=== PATIENT | female | born 1960 | race Caucasian/White ===

== ENCOUNTER 2016-12-23 07:28 | Day surgery (SDC) | payer BC ==
[~2016-12-23 07:28] MED LIST: Lactated Ringers 1,000 ML IV SCH
[2016-12-23] MEDS ORDERED: VERSED 5 MG/5 ML IV ONE ×2 (07:29)
[2016-12-23] MEDS ORDERED: DEMEROL 50 MG IV ONE (07:29)
[2016-12-23] MEDS ORDERED: Lactated Ringers 2,000 ML IV ONE (12:30)
[2016-12-23 13:32] VITALS: BP 113/77; PULSE 89; O2SAT 99
--- NOTE | 2016-12-23 13:54 | OP ---
SURGERY DATE/TIME: 12/23/2016 1000 PREOPERATIVE DIAGNOSIS: Anemia possibly GI. POSTOPERATIVE DIAGNOSES: 1) The patient has a fairly significant chronic gastritis and two help desk representative biopsies were obtained. 2) The patient has a very long redundant colon. She states it sometimes takes up to two weeks having a bowel movement and this is consistent with her exam. I was having a distal view of the cecum but not a perfect view of the cecum so it was slightly limited and within these limits it was a normal exam. She was sent for barium enema examination to look at her cecum. PROCEDURES: 1) Colonoscopy with slight limitation to the cecum. 2) EGD with cold biopsy x2. SURGEON: Chris Henderson M.D. ANESTHESIA: IVS. DESCRIPTION OF PROCEDURE: The scope was placed. Esophagus normal down to gastroesophageal junction. Small rim of esophagitis grade I. There was significant chronic gastritis and two help desk representative biopsies obtained. Pylorus satisfactory. Duodenal bulb satisfactory. The second portion satisfactory. The scope was withdrawn. No distal lesions noted. Anal digital examination satisfactory. The scope advanced. As noted with repositioning, total withdrawal of the scope and total replacement of scope it was a very long redundant colon with two areas of pretty substantial angulation. It was unclear but the base of the cecum was not well visualized. She was subsequently sent for barium enema examination.
--- NOTE | 2016-12-23 16:59 | XRAY ---
Exam: Air contrast barium enema from 12/23/2016. Total fluoroscopy time: 5.32 minutes. Comparison: CT of the abdomen with IV contrast from 10/27/2016. Indication: Incomplete colonoscopy. Findings: The preliminary automatic dry starch operator film of the abdomen reveals a mild rotary dextroscoliosis centered near the thoracolumbar junction. Surgical clips consistent with prior cholecystectomy are seen. I am also giving a history of prior hysterectomy. Abundant bowel gas is seen within the right hemiabdomen, probably due to insufflated air from the attempted colonoscopy. No hepatosplenomegaly is seen. The entire colon was prepared using double contrast technique. The sigmoid colon is long and redundant in its course. Some intermittent spasm is seen in some of the overhead films. The splenic flexure is also mildly redundant. The transverse colon dips down into the mid pelvis. On one of the spot images I note a small subcentimeter defect which could represent a small sessile polyp or adherent stool. I believe I can see this on a right lateral decubitus image as well. No other evidence of obstruction,: contour changes, or intraluminal polypoid mass is seen. The cecum distended well with reflux of a minimal amount of barium into the distal aspect of the terminal ileum. The appendix did not opacify. Impression: 1. The colon course is long and redundant, particularly within the sigmoid colon, but also to a lesser extent, within the splenic flexure. The mid transverse colon dips down into the mid pelvis. 2. There is a small subcentimeter etched defect within the distal sigmoid colon on one spot image and one of the 2 right lateral decubitus images. This could represent a small sessile polyp or adherent stool. 3. I see no colon obstruction, persistent stenotic lesions, or other intraluminal colon polyps. I did see some intermittent spasm within the colon on the overhead radiographs. 4. Mild rotary dextroscoliosis centered at the thoracolumbar junction.
== END 2016-12-23 15:20 | disposition home or self-care (01) ==
LOC: SDC 07:28
PROVIDERS: ATTEND Surgery
PROC: 0DJD8ZZ Inspection of Lower Intestinal Tract, Via Natural or Artificial Opening Endoscopic (ICD-10-PCS; principal; 2016-12-23)
PROC: 0DB48ZX Excision of Esophagogastric Junction, Via Natural or Artificial Opening Endoscopic, Diagnostic (ICD-10-PCS; 2016-12-23)
DX: K29.50 Unspecified chronic gastritis without bleeding (principal); Q43.8 Other specified congenital malformations of intestine
CPT/HCPCS: 36415; 74280; J2175; J2250

== ENCOUNTER 2023-01-08 16:11 | Emergency (ER) | payer MEDICARE, BC ==
[2023-01-08 16:33] VITALS: TEMP 98.1
[2023-01-08] MEDS ORDERED: Sodium Chloride 0.9% 1000 ML 1,000 ML IV STA (16:42)
[2023-01-08] MEDS ORDERED: Sodium Chloride 0.9% 1000 ML 1,000 ML ONE ×2 (16:57→18:00)
[2023-01-08 17:20] LABS: Absolute Neutrophil Ct (ANC) 2.61 x10^3/uL (1.4-6.9); BASOPHIL % 0.2 % (0.0-0.4); Basophil (Absolute #) 0.01 x10^3/uL (0-0.4); Eosinophil % 2.7 % (0.00-5.0); Eosinophil (Absolute #) 0.14 x10^3/uL (0-0.5); Hematocrit 41.3 % (35-47); Hemoglobin 13.5 g/dL (12.0-16.0); IMMATURE GRAN # 0.02 x10^3u/L (0.00-0.03); IMMATURE GRAN % 0.4 % (0.00-0.4); Lymphocyte (Absolute #) 1.54 x10^3/uL (1.0-4.6); Lymphocytes % 29.6 % (24.0-44.0); Mean Cell Volume 90.4 fL (78-100); Mean Corpuscular Hemoglobin 29.5 pg (26-32); Mean Corpuscular Hgb Concent. 32.7 g/dL (32-36); Mean Platelet Volume 9.3 fL (7.5-11.0); Monocyte (Absolute #) 0.89 x10^3/uL (0.0-1.3); Monocytes % 17.1 % (0.0-12.0); Platelet Count 400 x10^3/uL (150-450); Red Blood Count 4.57 x10^6/uL (4.1-5.4); Red Cell Distribution Width 14.1 % (11.5-14.0); White Blood Count 5.2 x10^3/uL (4.0-10.5)
[2023-01-08 17:27] LABS: ALBUMIN 4.1 g/dL (3.5-5.0); ANION GAP 15.1 MEQ/L (5-15); BILIRUBIN,TOTAL 0.4 mg/dL (0.2-1.3); Calcium 9.2 mg/dL (8.4-10.2); Creatinine 1 0.62 mg/dL (0.52-1.04); EST GLOMERULAR FILTRATION RATE 99.4 ML/MIN; Total Protein 7.6 g/dL (6.3-8.2)
[2023-01-08 17:30] LABS: Potassium 2.9 mmol/L (3.5-5.1)
--- NOTE | 2023-01-08 17:34 | ERPHSYRPT ---
- History of Present Illness Time Seen by Provider: 01/08/23 16:20 Historian: patient Exam Limitations: no limitations Patient Subjective Stated Complaint: Pt states that she began having uncontrollable diarrhea on Tuesday and it continues through today Triage Nursing Assessment: Pt brought self to the ER, hypertensive, denies pain, tried eating mashed potatoes and cream of wheat and it stayed down until later today and the diarrhea started again, pt has been incontinent of bowel, denies any antibiotic use or being around anyone sick, pulses normal, skin n/w/d and ro, doesn't appear to be in any distress Physician History: 62-year-old female presented in the ER with chief complaint of intractable diarrhea for the last 4 days. Patient reports multiple episodes of diarrhea where she has to go every 15 to 30 minutes. Minimal abdominal discomfort, had nausea yesterday with 2 episodes of vomiting. Not nauseated now. Subjective feeling of fever and chills. Denies any history of C. difficile, recent antib iotic use etc. Denies any known sick contact. Patient reports feeling weak fatigued tired and dehydrated. Allergies/Adverse Reactions: gluten Allergy (Verified 01/08/23 16:34) Home Medications: Dorzolamide/Timolol/Pf [Cosopt Pf Eye Drops] 1 each OP BID 12/17/16 [History] Latanoprost [Xalatan] 0.005 ml OP DAILY 12/17/16 [History] Timolol Maleate 0.5% Eye [Timoptic 0.5% 5 ml Ophthalmic] 5 ml OP DAILY 12/17/16 [History] Fluticasone/Umeclidin/Vilanter [Trelegy Ellipta 200-62.5-25] 1 puff PO UD 01/08/23 [History] Hx Tetanus, Diphtheria Vaccination/Date Given: Yes Hx Influenza Vaccination/Date Given: No Hx Pneumococcal Vaccination/Date Given: No Travel Risk - International Travel Have you traveled outside of the country in past 3 weeks: No - Coronavirus Screening Are you exhibiting any of the following symptoms?: No Close contact with a COVID-19 positive Pt in past 14-21 Days: No - Vaccine Status Have you recieved a Covid-19 vaccination: Yes Cond[employer] Manager: Moderna - Vaccination Dates Date of 2cond Vaccination (if applicable): 2020 - Review of Systems Constitutional: Fatigue, Weakness Eyes: No Symptoms Ears, Nose, & Throat: No Symptoms Respiratory: No Symptoms Cardiac: No Symptoms Abdominal/Gastrointestinal: Abdominal Pain, Nausea, Vomiting, Diarrhea Genitourinary Symptoms: No Symptoms Musculoskeletal: No Symptoms Skin: No Symptoms Neurological: No Symptoms Endocrine: No Symptoms Hematologic/Lymphatic: No Symptoms - Past Medical History Pertinent Past Medical History: Yes Neurological History: Other ENT History: No Pertinent History Cardiac History: No Pertinent History Respiratory History: No Pertinent History Endocrine Medical History: No Pertinent History Musculoskeletal History: Fibromyalgia GI Medical History: Polyps, Other History: No Pertinent History Psycho-Social History: No Pertinent History Female Reproductive Disorders: No Pertinent History Other Medical History: NEUROGENIC COUGH, RADIATION IN THE MEDIAL L ANKLE FOR BASAL CELL SKIN CANCER 2 YEARS AGO AND PT HAS BEEN CLEARED OF ANY CANCER CELLS. - Past Surgical History Past Surgical History: Yes Neuro Surgical History: No Pertinent History Cardiac: No Pertinent History Respiratory: No Pertinent History Gastrointestinal: Cholecystectomy, Other Genitourinary: No Pertinent History Musculoskeletal: No Pertinent History Female Surgical History: Hysterectomy Other Surgical History: COLONOSCOPIES EVERY THREE YEARS - Social History Smoking Status: Never smoker Exposure to second hand smoke: No Drug Use: none Patient Lives Alone: No - Nursing Vital Signs Nursing Vital Signs: Initial Vital Signs Temperature 98.1 F 01/08/23 16:23 Pulse Rate 63 01/08/23 16:23 Blood Pressure 140/90 01/08/23 16:23 O2 Sat by Pulse Oximetry 98 01/08/23 16:23 Pain Scale Pain Intensity 0 - Physical Exam General Appearance: no apparent distress, alert Eye Exam: PERRL/EOMI Ears, Nose, Throat Exam: normal ENT inspection Neck Exam: normal inspection, supple, full range of motion Respiratory Exam: normal breath sounds, lungs clear Cardiovascular Exam: regular rate/rhythm, normal heart sounds Gastrointestinal/Abdomen Exam: soft, normal bowel sounds, No tenderness Extremity Exam: normal inspection, normal range of motion Neurologic Exam: alert, oriented x 3, cooperative Skin Exam: normal color SpO2 Interpretation: normal SpO2: 98 O2 Delivery: Room Air Ordered Tests: Active Orders 24 hr Category Date Time Status IV Insertion STAT Care 01/08/23 16:42 Active Telemetry q4h Care 01/08/23 17:45 Active ABDOMEN AND PELVIS W/0 CONTRAS [CT] Stat Exams 01/08/23 16:42 Completed CBC W DIFF Stat Lab 01/08/23 17:00 Completed CMP Stat Lab 01/08/23 17:00 Completed LIPASE Stat Lab 01/08/23 17:00 Completed MAG [MAGNESIUM] Stat Lab 01/08/23 17:00 Completed UA W/RFX UR CULTURE Stat Lab 01/08/23 19:40 Completed Medication Summary Generic Name Dose Route Start Last Admin Trade Name Kyq PRN Reason Stop Dose Admin Potassium Chloride 20 meq in 100 mls @ 50 mls/hr 01/08/23 17:45 01/08/23 20:07 Potassium Chloride 20 Meq In Water 100ml IV 01/08/23 21:44 50 mls/hr Q2H IRINA Administration Sodium Chloride 1,000 mls @ 100 mls/hr 01/08/23 18:00 01/08/23 18:04 Sodium Chloride 0.9% 1000 Ml IV 02/07/23 17:59 100 mls/hr .Q10H IRINA Administration Discontinued Medications Generic Name Dose Route Start Last Admin Trade Name Daly PRN Reason Stop Dose Admin Sodium Chloride 1,000 mls @ 999 mls/hr 01/08/23 16:42 01/08/23 18:26 Sodium Chloride 0.9% 1000 Ml IV 01/08/23 17:42 Infused .Q1H1M STA Infusion Sodium Chloride Confirm 01/08/23 16:57 Sodium Chloride 0.9% 1000 Ml Administered 01/08/23 16:58 Dose 1,000 mls @ ud .ROUTE .STK-MED ONE Magnesium Sulfate/Dextrose 100 mls @ 200 mls/hr 01/08/23 17:44 01/08/23 18:04 Magnesium 1 Gm / 100 Ml D5w IV 01/08/23 18:13 200 mls/hr STAT ONE Administration Magnesium Sulfate/Dextrose Confirm 01/08/23 18:00 Magnesium 1 Gm / 100 Ml D5w Administered 01/08/23 18:01 Dose 100 mls @ ud IV .STK-MED ONE Potassium Chloride 40 meq 01/08/23 18:02 01/08/23 18:03 Potassium Chloride Tab 10 Meq Tab PO 01/08/23 18:03 40 meq STAT ONE Administration Potassium Chloride Confirm 01/08/23 18:03 Potassium Chloride Tab 10 Meq Tab Administered 01/08/23 18:04 Dose 40 meq PO .STK-MED ONE Lab/Rad Data: Laboratory Result Diagrams 01/08/23 17:00 01/08/23 17:00 Laboratory Results 01/08/23 01/08/23 01/08/23 Range/Units 19:40 17:00 17:00 WBC (4.0-10.5) x10^3/uL RBC (4.1-5.4) x10^6/uL Hgb (12.0-16.0) g/dL Hct (35-47) % MCV (78-100) fL MCH (26-32) pg MCHC (32-36) g/dL RDW (11.5-14.0) % Plt Count (150-450) x10^3/uL MPV (7.5-11.0) fL Gran % (36.0-66.0) % Immature Gran % (Auto) (0.00-0.4) % Nucleat RBC Rel Count (0.00-0.1) % Eos # (Auto) (0-0.5) x10^3/uL Immature Gran # (Auto) (0.00-0.03) x10^3u/L Absolute Lymphs (auto) (1.0-4.6) x10^3/uL Absolute Monos (auto) (0.0-1.3) x10^3/uL Absolute Nucleated RBC (0.00-0.01) x10^3u/L Lymphocytes % (24.0-44.0) % Monocytes % (0.0-12.0) % Eosinophils % (0.00-5.0) % Basophils % (0.0-0.4) % Absolute Granulocytes (1.4-6.9) x10^3/uL Basophils # (0-0.4) x10^3/uL Sodium 136 L (137-145) mmol/L Potassium 2.9 L* (3.5-5.1) mmol/L Chloride 99 (98-107) mmol/L Carbon Dioxide 25 (22-30) mmol/L Anion Gap 15.1 H (5-15) MEQ/L BUN 16 (7-17) mg/dL Creatinine 0.62 (0.52-1.04) mg/dL Estimated GFR 99.4 ML/MIN Glucose 102 (74-106) mg/dL Calcium 9.2 (8.4-10.2) mg/dL Magnesium 1.9 (1.6-2.3) mg/dL Total Bilirubin 0.40 (0.2-1.3) mg/dL AST 29 (14-36) U/L ALT 27 (0-35) U/L Alkaline Phosphatase 108 (38-126) U/L Serum Total Protein 7.6 (6.3-8.2) g/dL Albumin 4.1 (3.5-5.0) g/dL Lipase 63 (23-300) U/L Urine Color Yellow (Yellow) Urine Appearance Clear (Clear) Urine pH 6.0 (4.6-8.0) Ur Specific [place] <=1.005 (1.005-1.030) Urine Protein Negative (Negative) Urine Glucose (UA) Negative (Negative) mg/dL Urine Ketones Trace A (Negative) Urine Blood Small A (Negative) Urine Nitrite Negative (Negative) Urine Bilirubin Negative (Negative) Urine Urobilinogen 0.2 (0.2) mg/dL Ur Leukocyte Esterase Negative (Negative) U Hyaline Cast (Auto) NONE SEEN (0-2) /LPF Urine Microscopic RBC 0-2 (0-5) /HPF Urine Microscopic WBC 0-2 (0-5) /HPF Ur Epithelial Cells None Seen (None Seen) /HPF Urine Bacteria None Seen (None Seen) /HPF Urine Culture Reflexed NO (NO) C. difficile Screen (NEGATIVE) C.difficile [id number] (NEGATIVE) 01/08/23 01/08/23 Range/Units 17:00 16:56 WBC 5.2 (4.0-10.5) x10^3/uL RBC 4.57 (4.1-5.4) x10^6/uL Hgb 13.5 (12.0-16.0) g/dL Hct 41.3 (35-47) % MCV 90.4 (78-100) fL MCH 29.5 (26-32) pg MCHC 32.7 (32-36) g/dL RDW 14.1 H (11.5-14.0) % Plt Count 400 (150-450) x10^3/uL MPV 9.3 (7.5-11.0) fL Gran % 50.0 (36.0-66.0) % Immature Gran % (Auto) 0.4 (0.00-0.4) % Nucleat RBC Rel Count 0.0 (0.00-0.1) % Eos # (Auto) 0.14 (0-0.5) x10^3/uL Immature Gran # (Auto) 0.02 (0.00-0.03) x10^3u/L Absolute Lymphs (auto) 1.54 (1.0-4.6) x10^3/uL Absolute Monos (auto) 0.89 (0.0-1.3) x10^3/uL Absolute Nucleated RBC 0.00 (0.00-0.01) x10^3u/L Lymphocytes % 29.6 (24.0-44.0) % Monocytes % 17.1 H (0.0-12.0) % Eosinophils % 2.7 (0.00-5.0) % Basophils % 0.2 (0.0-0.4) % Absolute Granulocytes 2.61 (1.4-6.9) x10^3/uL Basophils # 0.01 (0-0.4) x10^3/uL Sodium (137-145) mmol/L Potassium (3.5-5.1) mmol/L Chloride (98-107) mmol/L Carbon Dioxide (22-30) mmol/L Anion Gap (5-15) MEQ/L BUN (7-17) mg/dL Creatinine (0.52-1.04) mg/dL Estimated GFR ML/MIN Glucose (74-106) mg/dL Calcium (8.4-10.2) mg/dL Magnesium (1.6-2.3) mg/dL Total Bilirubin (0.2-1.3) mg/dL AST (14-36) U/L ALT (0-35) U/L Alkaline Phosphatase (38-126) U/L Serum Total Protein (6.3-8.2) g/dL Albumin (3.5-5.0) g/dL Lipase (23-300) U/L Urine Color (Yellow) Urine Appearance (Clear) Urine pH (4.6-8.0) Ur Specific [place] (1.005-1.030) Urine Protein (Negative) Urine Glucose (UA) (Negative) mg/dL Urine Ketones (Negative) Urine Blood (Negative) Urine Nitrite (Negative) Urine Bilirubin (Negative) Urine Urobilinogen (0.2) mg/dL Ur Leukocyte Esterase (Negative) U Hyaline Cast (Auto) (0-2) /LPF Urine Microscopic RBC (0-5) /HPF Urine Microscopic WBC (0-5) /HPF Ur Epithelial Cells (None Seen) /HPF Urine Bacteria (None Seen) /HPF Urine Culture Reflexed (NO) C. difficile Screen NEGATIVE (NEGATIVE) C.difficile 027-NAP1-B1 PRESUMPTIVE NEGATIVE (NEGATIVE) - Progress Progress: improved Progress Note: 01/08/23 21:34 62-year-old female presented in the ER with chief complaint of intractable diarrhea for the last 4 days. Patient reports multiple episodes of diarrhea where she has to go every 15 to 30 minutes. Minimal abdominal discomfort, had nausea yesterday with 2 episodes of vomiting. Not nauseated now. Subjective feeling of fever and chills. Denies any history of C. difficile, recent antibiotic use etc. Denies any known sick contact. Patient reports feeling weak fatigued tired and dehydrated. Abdominal exam is soft nontender with hyperactive bowel sounds. Given fluid bolus. Abdominal exam is soft nontender. Because of repeated/intractable diarrhea for the last few days I have done CT abdomen pelvis which is negative for any acute findings. Normal white count, fairly unremarkable chemistries except for pota ssium of 2.9 and given oral and IV replacement along with magnesium. C. difficile is negative. Patient is feeling much better. She does not have any further bowel movements. She is advised to take Tylenol, increase hydration, Zofran as needed and outpatient follow-up for reevaluation. We will give her few days worth of oral potassium replacement and recommended food containing high potassium the next few days and recheck potassium early next week. Discussed signs symptoms of worsening needing return to ER which she seems understanding. Stable for discharge. Counseled pt/family regarding: lab results, diagnosis, need for follow-up, rad results Medical Desision Making - Diagnostic Testing Diagnostic test were ordered, analyzed, and reviewed by me: Yes Radiological Interpretation: Reviewed by me, Teleradiologist Report - Risk of complications The pt has a mod risk of morbidity or mortality based on: Need for prescription drug management - Departure Departure Disposition: Home Clinical Impression: Gastroenteritis, Hypokalemia Condition: Stable Critical Care Time: No Referrals: EDDA DIAZ [Primary Care Provider] - Follow up/PCP as directed (Early next week for reevaluation and recheck of potassium) Instructions: Viral Gastroenteritis, Adult (DC) Additional Instructions: Drink plenty of fluids to keep yourself well-hydrated. Take Tylenol/Zofran as needed. Follow-up with primary care for reevaluation early next week and also recheck of your potassium. Return to ER for intractable diarrhea/abdominal pain/fever chills etc. Prescriptions: Potassium Chloride 10 meq PO BID 5 Days #10 cap Ondansetron ODT 4 MG [Zofran Odt 4 mg] 1 ea PO QIDPRN PRN #7 tablet PRN Reason: n/v
--- NOTE | 2023-01-08 17:41 | XRAY ---
CLINICAL HISTORY:DIARRHEA , COLITIS? COMPARISON:Compared to the previous CT chest study dated 07/02/2022. TECHNIQUE:A CT scan of the abdomen and pelvis was performed without IV contrast. Coronal and sagittal reconstructive images were also obtained. FINDINGS: Scanned lower chest cuts show ground glass and linear atelectatic bands are seen in the right middle lobe, likely sequelae of the previous inflammatory process. Abdomen: The liver is normal in size measuring 15.6 cm craniocaudally. A mildly lobulated, well-circumscribed hypodense nodule is seen in segment VII, measuring about 2.3 x 2.1 cm. The portal vein, intrahepatic biliary radicals, and the bile ducts are normal. The spleen, pancreas, and adrenal glands are unremarkable. The kidneys are normal in size and shape. No cysts, mass, calculi, or hydronephrosis. The gallbladder is not visualized with surgical clips within the gallbladder fossa. The ascending colon, the transverse colon, the descending colon, visualized small bowel loops are unremarkable. There is no evidence of significant enlargement of the mesenteric or retroperitoneal lymph nodes. Pelvis: The urinary bladder is underfilled. The uterus is surgically removed with no gross abnormality related to the surgical bed. The pelvic vasculature is unremarkable. No evidence of pelvic lymphadenopathy. Degenerative osseous changes are seen. There is rightward curvature of the lumbar spine. Wedging of T12 vertebral body likely representing osteoporotic fracture. The appendix is not visualized. IMPRESSION: Compared to the previous CT chest study dated 07/02/2022 No acute abdominal/pelvis abnormality noted. Hepatic nodule ( likely hepatic cyst) measuring 2.3 x 2.1 cm showing no interval change. Electronically Signed by: Karma White MD. (01/08/2023 16:40:40 AG SERVICE MANAGER)
[2023-01-08] MEDS ORDERED: Magnesium 1 Gm / 100 Ml D5W*** 100 ML IV ONE ×2 (17:44→18:00)
[2023-01-08] MEDS ORDERED: POTASSIUM CHLORIDE 20 mEq IN WATER 100ML 100 ML IV ONE ×2 (18:00→20:07)
[2023-01-08] MEDS ORDERED: Sodium Chloride 0.9% 1000 ML 1,000 ML IV SCH (18:00)
[2023-01-08] MEDS ORDERED: Klor Con PO ONE ×2 (18:02→18:03)
[2023-01-08 18:04] LABS: 027 TOX PROD PRESUMPTIVE NEGATIVE (NEGATIVE); TOXIGENIC C. DIFF ORG NEGATIVE (NEGATIVE)
[2023-01-08] MEDS: POTASSIUM CHLORIDE 20 mEq IN WATER 100ML 20 MEQ/100 ML BAG IV SCH ×2 (18:04→20:07)
[2023-01-08 19:41] VITALS: RESP 16
[2023-01-08 19:49] LABS: Appearance Clear (Clear); Bilirubin Negative (Negative); Blood Small (Negative); Glucose, Urine Negative (Negative); Ketones Trace (Negative); Leukocyte Esterase Negative (Negative); Nitrite Negative (Negative); Protein,Urine Dip Negative (Negative); Specific Gravity <=1.005 (1.005-1.030); Urobilinogen 0.2 mg/dL (0.2)
[2023-01-08 19:54] LABS: Bacteria None Seen /HPF (None Seen); Epithelial Cells None Seen /HPF (None Seen); Hyaline Casts NONE SEEN /LPF (0-2); RBC 0-2 /HPF (0-5); WBC 0-2 /HPF (0-5)
[2023-01-08 19:55] LABS: ADD URINE CULTURE? NO (NO)
[2023-01-08 21:26] VITALS: PULSE 80
[2023-01-08 22:27] VITALS: BP 113/70; O2SAT 98
== END 2023-01-08 22:31 | disposition home or self-care (01) ==
LOC: ED 16:11
DX: K52.9 Noninfective gastroenteritis and colitis, unspecified (principal); E87.6 Hypokalemia; R11.2 Nausea with vomiting, unspecified; R53.83 Other fatigue; Z79.899 Other long term (current) drug therapy
CPT/HCPCS: 36000; 36415; 74176; 80053; 81001; 83690; 83735; 85025; 87493; 96360; 96361; 96365; 96367; 99284; J3475; J3480; A9270-GY

== ENCOUNTER 2023-01-09 20:05 | Emergency (ER) | payer MEDICARE, BC ==
[2023-01-09] MEDS ORDERED: Sodium Chloride 0.9% 1000 ML 1,000 ML IV STA (20:38)
[2023-01-09 20:45] VITALS: RESP 16; TEMP 97.4
--- NOTE | 2023-01-09 20:46 | ERPHSYRPT ---
- History of Present Illness Time Seen by Provider: 01/09/23 20:31 Historian: patient Exam Limitations: no limitations Physician History: Pt states she has had diarrhea without blood for the past 4 days, nausea & vomiting x2 without blood 2 days ago only, generalized weakness for the past 2 days, palpitations yesterday only and a sore throat today. Allergies/Adverse Reactions: gluten Allergy (Verified 01/08/23 16:34) Home Medications: Dorzolamide/Timolol/Pf [Cosopt Pf Eye Drops] 1 each OP BID 12/17/16 [History] Latanoprost [Xalatan] 0.005 ml OP DAILY 12/17/16 [History] Timolol Maleate 0.5% Eye [Timoptic 0.5% 5 ml Ophthalmic] 5 ml OP DAILY 12/17/16 [History] Fluticasone/Umeclidin/Vilanter [Trelegy Ellipta 200-62.5-25] 1 puff PO UD 01/08/23 [History] Hx Tetanus, Diphtheria Vaccination/Date Given: Yes Hx Influenza Vaccination/Date Given: No Hx Pneumococcal Vaccination/Date Given: No Travel Risk - Vaccine Status Have you recieved a Covid-19 vaccination: Yes 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 - Vaccination Dates Date of 2cond Vaccination (if applicable): 2020 - Review of Systems Constitutional: No Fever Ears, Nose, & Throat: Throat Pain Respiratory: No Dyspnea Cardiac: Palpitations Abdominal/Gastrointestinal: Nausea, Vomiting, Diarrhea, No Abdominal Pain Genitourinary Symptoms: No Dysuria Skin: No Rash Neurological: No Headache - Past Medical History Pertinent Past Medical History: Yes Neurological History: Other ENT History: No Pertinent History Cardiac History: No Pertinent History Respiratory History: No Pertinent History Endocrine Medical History: No Pertinent History Musculoskeletal History: Fibromyalgia GI Medical History: Polyps, Other History: No Pertinent History Psycho-Social History: No Pertinent History Female Reproductive Disorders: No Pertinent History Other Medical History: NEUROGENIC COUGH, RADIATION IN THE MEDIAL L ANKLE FOR BASAL CELL SKIN CANCER 2 YEARS AGO AND PT HAS BEEN CLEARED OF ANY CANCER CELLS. - Past Surgical History Past Surgical History: Yes Neuro Surgical History: No Pertinent History Cardiac: No Pertinent History Respiratory: No Pertinent History Gastrointestinal: Cholecystectomy, Other Genitourinary: No Pertinent History Musculoskeletal: No Pertinent History Female Surgical History: Hysterectomy Other Surgical History: COLONOSCOPIES EVERY THREE YEARS - Social History Smoking Status: Never smoker Exposure to second hand smoke: No Drug Use: none Patient Lives Alone: No - Nursing Vital Signs Nursing Vital Signs: Initial Vital Signs Temperature 97.4 F 01/09/23 20:31 Pulse Rate 77 01/09/23 20:31 Respiratory Rate 16 01/09/23 20:31 Blood Pressure 125/71 01/09/23 20:31 O2 Sat by Pulse Oximetry 95 01/09/23 20:31 Pain Scale Pain Intensity 0 - Physical Exam General Appearance: alert Eye Exam: PERRL/EOMI Ears, Nose, Throat Exam: TMs normal, pharyngeal erythema Neck Exam: normal inspection Respiratory Exam: lungs clear Cardiovascular Exam: normal heart sounds Gastrointestinal/Abdomen Exam: soft, other (B.S. moderately hyperactive and normotonic) Back Exam: normal inspection Extremity Exam: normal inspection, No pedal edema Neurologic Exam: alert, cooperative Skin Exam: warm, dry - Course EKG Interpreted by Me: RATE (81), Sinus Rhythm, NORMAL AXIS, Other (PVC) - Radiology Exams Chest X-ray Interpretation: Interpreted by me, No Pneumonia Ordered Tests: Active Orders 24 hr Category Date Time Status EKG-ER Only STAT Care 01/09/23 21:57 Active CHEST 2 VIEWS (PA AND LAT) Stat Exams 01/09/23 20:39 Taken AMYLASE Stat Lab 01/09/23 21:02 Completed CBC W DIFF Stat Lab 01/09/23 21:02 Completed CMP Stat Lab 01/09/23 21:02 Completed LIPASE Stat Lab 01/09/23 21:02 Completed MAGNESIUM Stat Lab 01/09/23 21:02 Completed MONO SCREEN Stat Lab 01/09/23 21:02 Completed Manual Differential NC Stat Lab 01/09/23 21:02 Completed TROPONIN Q4H Lab 01/10/23 00:45 Ordered TROPONIN Q4H Lab 01/10/23 04:45 Ordered TROPONIN Stat Lab 01/09/23 21:02 Completed UA W/RFX UR CULTURE Stat Lab 01/09/23 22:45 Completed Medication Summary Discontinued Medications Generic Name Dose Route Start Last Admin Trade Name Freq PRN Reason Stop Dose Admin Sodium Chloride 1,000 mls @ 999 mls/hr 01/09/23 20:38 01/09/23 21:08 Sodium Chloride 0.9% 1000 Ml IV 01/09/23 21:38 999 mls/hr .Q1H1M STA Administration Sodium Chloride Confirm 01/09/23 21:07 Sodium Chloride 0.9% 1000 Ml Administered 01/09/23 21:08 Dose 1,000 mls @ ud .ROUTE .STK-MED ONE Lab/Rad Data: Laboratory Result Diagrams 01/09/23 21:02 01/09/23 21:02 Laboratory Results 01/09/23 01/09/23 01/09/23 Range/Units 22:45 21:02 21:02 WBC (4.0-10.5) x10^3/uL RBC (4.1-5.4) x10^6/uL Hgb (12.0-16.0) g/dL Hct (35-47) % MCV (78-100) fL MCH (26-32) pg MCHC (32-36) g/dL RDW (11.5-14.0) % Plt Count (150-450) x10^3/uL MPV (7.5-11.0) fL Segmented Neutrophils (36.0-66.0) % Lymphocytes (Manual) (24-44) % Monocytes (Manual) (0.0-12.0) % Eosinophils (Manual) (0.00-3.0) % Atypical Lymphocytes % Platelet Estimate (NORMAL) RBC Morphology Anisocytosis Sodium (137-145) mmol/L Potassium (3.5-5.1) mmol/L Chloride (98-107) mmol/L Carbon Dioxide (22-30) mmol/L Anion Gap (5-15) MEQ/L BUN (7-17) mg/dL Creatinine (0.52-1.04) mg/dL Estimated GFR ML/MIN Glucose (74-106) mg/dL Calcium (8.4-10.2) mg/dL Magnesium (1.6-2.3) mg/dL Total Bilirubin (0.2-1.3) mg/dL AST (14-36) U/L ALT (0-35) U/L Alkaline Phosphatase (38-126) U/L Troponin I (0.000-0.034) ng/mL Serum Total Protein (6.3-8.2) g/dL Albumin (3.5-5.0) g/dL Amylase (30-110) U/L Lipase (23-300) U/L Urine Color Yellow (Yellow) Urine Appearance Clear (Clear) Urine pH 5.5 (4.6-8.0) Ur Specific [place] <=1.005 (1.005-1.030) Urine Protein Negative (Negative) Urine Glucose (UA) Negative (Negative) mg/dL Urine Ketones Negative (Negative) Urine Blood Trace (Negative) Urine Nitrite Negative (Negative) Urine Bilirubin Negative (Negative) Urine Urobilinogen 0.2 (0.2) mg/dL Ur Leukocyte Esterase Negative (Negative) U Hyaline Cast (Auto) NONE SEEN (0-2) /LPF Urine Microscopic RBC 0-2 (0-5) /HPF Urine Microscopic WBC 0-2 (0-5) /HPF Ur Epithelial Cells None Seen (None Seen) /HPF Urine Bacteria None Seen (None Seen) /HPF Urine Culture Reflexed NO (NO) Monoscreen WEAKLY POSITIVE A (NEGATIVE) Influenza Type A Ag NEGATIVE (NEGATIVE) Influenza Type B Ag NEGATIVE (NEGATIVE) RSV (PCR) NEGATIVE (NEGATIVE) SARS-CoV-2 (PCR) NEGATIVE (NEGATIVE) Group A Strep Antibody (NEGATIVE) 01/09/23 01/09/23 01/09/23 Range/Units 21:02 21:02 21:02 WBC (4.0-10.5) x10^3/uL RBC (4.1-5.4) x10^6/uL Hgb (12.0-16.0) g/dL Hct (35-47) % MCV (78-100) fL MCH (26-32) pg MCHC (32-36) g/dL RDW (11.5-14.0) % Plt Count (150-450) x10^3/uL MPV (7.5-11.0) fL Segmented Neutrophils (36.0-66.0) % Lymphocytes (Manual) (24-44) % Monocytes (Manual) (0.0-12.0) % Eosinophils (Manual) (0.00-3.0) % Atypical Lymphocytes % Platelet Estimate (NORMAL) RBC Morphology Anisocytosis Sodium 136 L (137-145) mmol/L Potassium 3.9 D (3.5-5.1) mmol/L Chloride 103 (98-107) mmol/L Carbon Dioxide 25 (22-30) mmol/L Anion Gap 12.2 (5-15) MEQ/L BUN 7 (7-17) mg/dL Creatinine 0.50 L (0.52-1.04) mg/dL Estimated GFR 104.7 ML/MIN Glucose 98 (74-106) mg/dL Calcium 8.9 (8.4-10.2) mg/dL Magnesium 1.9 (1.6-2.3) mg/dL Total Bilirubin 0.30 (0.2-1.3) mg/dL AST 25 (14-36) U/L ALT 22 (0-35) U/L Alkaline Phosphatase 93 (38-126) U/L Troponin I < 0.012 (0.000-0.034) ng/mL Serum Total Protein 6.2 L (6.3-8.2) g/dL Albumin 3.3 L (3.5-5.0) g/dL Amylase 50 (30-110) U/L Lipase 119 (23-300) U/L Urine Color (Yellow) Urine Appearance (Clear) Urine pH (4.6-8.0) Ur Specific [place] (1.005-1.030) Urine Protein (Negative) Urine Glucose (UA) (Negative) mg/dL Urine Ketones (Negative) Urine Blood (Negative) Urine Nitrite (Negative) Urine Bilirubin (Negative) Urine Urobilinogen (0.2) mg/dL Ur Leukocyte Esterase (Negative) U Hyaline Cast (Auto) (0-2) /LPF Urine Microscopic RBC (0-5) /HPF Urine Microscopic WBC (0-5) /HPF Ur Epithelial Cells (None Seen) /HPF Urine Bacteria (None Seen) /HPF Urine Culture Reflexed (NO) Monoscreen (NEGATIVE) Influenza Type A Ag (NEGATIVE) Influenza Type B Ag (NEGATIVE) RSV (PCR) (NEGATIVE) SARS-CoV-2 (PCR) (NEGATIVE) Group A Strep Antibody NOT DETECTED (NEGATIVE) 01/09/23 Range/Units 21:02 WBC 4.2 (4.0-10.5) x10^3/uL RBC 3.89 L (4.1-5.4) x10^6/uL Hgb 11.3 L (12.0-16.0) g/dL Hct 35.2 (35-47) % MCV 90.5 (78-100) fL MCH 29.0 (26-32) pg MCHC 32.1 (32-36) g/dL RDW 14.2 H (11.5-14.0) % Plt Count 380 (150-450) x10^3/uL MPV 8.5 (7.5-11.0) fL Segmented Neutrophils 36 (36.0-66.0) % Lymphocytes (Manual) 43 (24-44) % Monocytes (Manual) 12 (0.0-12.0) % Eosinophils (Manual) 5 H (0.00-3.0) % Atypical Lymphocytes 4 % Platelet Estimate NORMAL (NORMAL) RBC Morphology NORMAL Anisocytosis 1+ Sodium (137-145) mmol/L Potassium (3.5-5.1) mmol/L Chloride (98-107) mmol/L Carbon Dioxide (22-30) mmol/L Anion Gap (5-15) MEQ/L BUN (7-17) mg/dL Creatinine (0.52-1.04) mg/dL Estimated GFR ML/MIN Glucose (74-106) mg/dL Calcium (8.4-10.2) mg/dL Magnesium (1.6-2.3) mg/dL Total Bilirubin (0.2-1.3) mg/dL AST (14-36) U/L ALT (0-35) U/L Alkaline Phosphatase (38-126) U/L Troponin I (0.000-0.034) ng/mL Serum Total Protein (6.3-8.2) g/dL Albumin (3.5-5.0) g/dL Amylase (30-110) U/L Lipase (23-300) U/L Urine Color (Yellow) Urine Appearance (Clear) Urine pH (4.6-8.0) Ur Specific [place] (1.005-1.030) Urine Protein (Negative) Urine Glucose (UA) (Negative) mg/dL Urine Ketones (Negative) Urine Blood (Negative) Urine Nitrite (Negative) Urine Bilirubin (Negative) Urine Urobilinogen (0.2) mg/dL Ur Leukocyte Esterase (Negative) U Hyaline Cast (Auto) (0-2) /LPF Urine Microscopic RBC (0-5) /HPF Urine Microscopic WBC (0-5) /HPF Ur Epithelial Cells (None Seen) /HPF Urine Bacteria (None Seen) /HPF Urine Culture Reflexed (NO) Monoscreen (NEGATIVE) Influenza Type A Ag (NEGATIVE) Influenza Type B Ag (NEGATIVE) RSV (PCR) (NEGATIVE) SARS-CoV-2 (PCR) (NEGATIVE) Group A Strep Antibody (NEGATIVE) - Progress Progress: improved Counseled pt/family regarding: lab results, diagnosis, rad results Medical Desision Making - Diagnostic Testing Diagnostic test were ordered, analyzed, and reviewed by me: Yes Radiological Interpretation: Interpreted by me - Departure Departure Disposition: Home Clinical Impression: Mononucleosis, Diarrhea, Vomiting, Palpitations Condition: Stable Critical Care Time: No Referrals: EDDA DIAZ [Primary Care Provider] - Follow up/PCP as directed Instructions: Diarrhea and Travelers' Diarrhea, Adult (DC) Additional Instructions: Follow up with private doctor tomorrow. Start clear liquids for the next 12 hours followed by a soft bland diet; no milk or juice for the next 2 days.
[2023-01-09 21:06] LABS: Hematocrit 35.2 % (35-47); Hemoglobin 11.3 g/dL (12.0-16.0); Mean Cell Volume 90.5 fL (78-100); Mean Corpuscular Hgb Concent. 32.1 g/dL (32-36); Mean Platelet Volume 8.5 fL (7.5-11.0); Platelet Count 380 x10^3/uL (150-450); Red Blood Count 3.89 x10^6/uL (4.1-5.4); Red Cell Distribution Width 14.2 % (11.5-14.0); White Blood Count 4.2 x10^3/uL (4.0-10.5)
[2023-01-09] MEDS ORDERED: Sodium Chloride 0.9% 1000 ML 1,000 ML ONE (21:07)
[2023-01-09 21:22] LABS: ALBUMIN 3.3 g/dL (3.5-5.0); ANION GAP 12.2 MEQ/L (5-15); BILIRUBIN,TOTAL 0.3 mg/dL (0.2-1.3); Calcium 8.9 mg/dL (8.4-10.2); Creatinine 1 0.5 mg/dL (0.52-1.04); EST GLOMERULAR FILTRATION RATE 104.7 ML/MIN; Potassium 3.9 mmol/L (3.5-5.1); Total Protein 6.2 g/dL (6.3-8.2)
[2023-01-09 21:33] LABS: MAGNESIUM 1.9 mg/dL (1.6-2.3); TROPONIN < 0.012 ng/mL (0.000-0.034)
[2023-01-09 21:48] LABS: INFLUENZA A NEGATIVE (NEGATIVE); INFLUENZA B NEGATIVE (NEGATIVE); RESPIRATORY SYNCTIAL VIRUS NEGATIVE (NEGATIVE); SARS-CoV-2 Xpert Express NEGATIVE (NEGATIVE)
[2023-01-09 21:51] LABS: ATYPICAL LYMPHS 4 %; Eosinophil 5 % (0.00-3.0); Lymphocytes 43 % (24-44); Monocyte 12 % (0.0-12.0); Neutrophils 36 % (36.0-66.0); Total Cells Counted 100
[2023-01-09 21:52] LABS: ANISOCYTOSIS 1+; Platelet Estimate NORMAL (NORMAL)
[2023-01-09 23:00] LABS: Appearance Clear (Clear); Bacteria None Seen /HPF (None Seen); Bilirubin Negative (Negative); Blood Trace (Negative); Epithelial Cells None Seen /HPF (None Seen); Glucose, Urine Negative (Negative); Hyaline Casts NONE SEEN /LPF (0-2); Ketones Negative (Negative); Leukocyte Esterase Negative (Negative); Nitrite Negative (Negative); Ph 5.5 (4.6-8.0); Protein,Urine Dip Negative (Negative); RBC 0-2 /HPF (0-5); Specific Gravity <=1.005 (1.005-1.030); Urobilinogen 0.2 mg/dL (0.2); WBC 0-2 /HPF (0-5)
[2023-01-09 23:01] LABS: ADD URINE CULTURE? NO (NO)
[2023-01-09 23:25] VITALS: BP 108/69; PULSE 80; O2SAT 95
--- NOTE | 2023-01-10 08:45 | XRAY ---
Indication: Palpitations. Comparison: April 27, 2022 PA/lateral chest remains hyperinflated without focal infiltrate, consolidation, or large effusion. Heart not enlarged. Bony thorax intact again with osteopenia, dextroscoliosis, and remote T12 compression fracture. Impression: Continued nonacute chest with chronic features.
== END 2023-01-09 23:57 | disposition home or self-care (01) ==
LOC: ED 20:05
DX: B27.90 Infectious mononucleosis, unspecified without complication (principal); R19.7 Diarrhea, unspecified; R11.2 Nausea with vomiting, unspecified; R00.2 Palpitations; R53.1 Weakness; J02.9 Acute pharyngitis, unspecified; Z79.899 Other long term (current) drug therapy; Z20.828 Contact with and (suspected) exposure to other viral communicable diseases
CPT/HCPCS: 0241U; 36000; 36415; 71046; 80053; 81001; 82150; 83690; 83735; 84484; 85025; 86308; 87651; 93005; 96360; 99284